=== PATIENT | male | born 1990 | race Caucasian/White ===

== ENCOUNTER 2018-08-06 17:25 | Emergency (ER) | payer SELFPAY ==
[2018-08-06 17:52] VITALS: BP 151/68; TEMP 99; O2SAT 99
--- NOTE | 2018-08-06 18:08 | ED.PDOC ---
History of Present Illness - General Chief Complaint: Skin/Abrasion/Tear Stated Complaint: sores on left arm Time Seen by Provider: 08/06/18 18:05 Source: patient Exam Limitations: no limitations - History of Present Illness Initial Comments: PT REPORTS 2 DAY HISTORY OF RED PAINFUL SORES ON HIS LEFT FOREARM. PT REPORTS TRYING TO SQUEEZE THE SORES AND GETTING A SMALL AMOUNT OF CLEAR FLUID OUT. PT DENIES FEVER OR CHILLS. Timing/Duration: getting worse Severity: moderate Location: extremities Allergies/Adverse Reactions: Allergies Penicillin G Allergy (Unverified 10/24/12 22:37) Home Medications: Ambulatory Orders Mupirocin 2 % Oint [Bactroban Oint] 2 % TOP TID #20 gm 08/06/18 Sulfamethoxazole-Trimethoprim [Bactrim Ds 800-160 mg] 2 tab PO BID #14 tab 08/06 Review of Systems - Review of Systems Constitutional: Denies: chills, fever Gastrointestinal/Abdominal: Denies: diarrhea, nausea Musculoskeletal: Denies: joint pain, joint swelling Skin: States: change in color, lesions, lumps Neurological: Denies: headache, numbness Past Medical History (General) - Patient Medical History Hx Stroke: No Hx Congestive Heart Failure: No Hx Diabetes: No Surgical History: no surgical history - Vaccination History Hx Tetanus, Diphtheria Vaccination: - unknown Hx Influenza Vaccination: No - Social History Hx Tobacco Use: Yes Family Medical History - Family History Mother Family History: Unknown Living Status: Still Living Physical Exam - Physical Exam General Appearance: Alert, No apparent distress, Well Developed, Well Groomed, Well Hydrated Eyes, Ears, Nose, Throat Exam: normal ENT inspection Neck: normal inspection Respiratory: no respiratory distress Extremity: other - TENDER ERYTHEMATOUS LESIONS TO THE L FOREARM, NO FLUCTUANCE OR PURULENT DRAINAGE NOTED. Skin Exam: warm/dry, normal color Skin Problem Location: upper extremities - LEFT FOREARM Skin Character: abscess, erythema, lesion, tenderness, warm Departure - Departure Clinical Impression: Boil, Cellulitis Time of Disposition: 18:09 Disposition: Discharge to Home or Self Care Condition: Fair Departure Forms: ED Discharge - Pt. Copy, Patient Portal Self Enrollment Instructions: Boil (DC), Cellulitis (Skin Infection), Adult (DC) Referrals: [facility] [Provider Group] - 1-5 Days Prescriptions: Mupirocin 2 % Oint [Bactroban Oint] 2 % TOP TID #20 gm Sulfamethoxazole-Trimethoprim [Bactrim Ds 800-160 mg] 2 tab PO BID #14 tab Home Medications: Ambulatory Orders Mupirocin 2 % Oint [Bactroban Oint] 2 % TOP TID #20 gm 08/06/18 Sulfamethoxazole-Trimethoprim [Bactrim Ds 800-160 mg] 2 tab PO BID #14 tab 08/06
[2018-08-06] MEDS ORDERED: SULFA/TRIMETH 800/160 (DS) TAB 1 EA TAB PO ONE (18:11)
== END 2018-08-06 18:34 | disposition home or self-care (01) ==
LOC: ER 17:25
DX: L02.424 Furuncle of left upper limb (principal); L03.114 Cellulitis of left upper limb; Z87.891 Personal history of nicotine dependence; Z88.0 Allergy status to penicillin